=== PATIENT | female | born 1940 | race Caucasian/White ===

== ENCOUNTER → 2019-02-25 14:42 | Emergency (ER) | payer MEDICARE, MEDICAID ==
--- NOTE | 2019-02-25 15:26 | ED ---
Skin Complaint - HPI Summary HPI Summary: Pt. is a 78 y.o female who presents to the ER for questionable foreign body to nose. Pt. states last , 5 days ago, she felt either a wire or plastic band over the bridge of her nose. Pt. states she tried to remove it but is unable to get it off skin. Pt. states her nose then became red and scabbed. Past hx of DM, HTN, HDL. Sxs are mild in severity. No current modifying factors. - History of Current Complaint Chief Complaint: EDGeneral Time Seen by Provider: 02/25/19 15:12 Stated Complaint: INJURY TO MY NOSE PER PT Hx Obtained From: Patient Pain Intensity: 3 - Allergy/Home Medications Allergies/Adverse Reactions: Allergies Allergy/AdvReac Type Severity Reaction Status Date / Time Penicillins Allergy Hives Verified 02/25/19 14:58 Sulfa (Sulfonamide Allergy Hives Verified 02/25/19 14:58 Antibiotics) PMH/Surg Hx/FS Hx/Imm Hx Previously Healthy: Yes Infectious Disease History: No Infectious Disease History: Denies: Traveled Outside the [place] in Last 30 Days - Family History Known Family History: Positive: Non-Contributory - Social History Occupation: Retired Lives: Alone Review of Systems Constitutional: Negative Negative: Fever, Chills Positive: Other - redness to nose. ?FB. Neurological: Negative All Other Systems Reviewed And Are Negative: Yes Physical Exam Triage Information Reviewed: Yes Vital Signs On Initial Exam: Initial Vitals Temp Pulse Resp BP Pulse Ox 97.7 F 67 16 133/77 96 02/25/19 14:52 02/25/19 14:52 02/25/19 14:52 02/25/19 14:52 02/25/19 14:52 Vital Signs Reviewed: Yes Appearance: Positive: Well-Appearing - Pt. sitting up in bed in NAD. Talkative. Skin: Positive: Warm, Dry, Other - Scabbed areas with yellow crusting noted over tip of nose and nostrils. There is mild surrouding and extending erythmea to nasal bridge. I do not appreciate overlying FB. No induration or fluctuance. Head/Face: Positive: Normal Head/Face Inspection Eyes: Positive: Normal, EOMI Neck: Positive: Supple Neurological: Positive: Normal, CN Intact II-III Psychiatric: Positive: Affect/Mood Appropriate Diagnostics - Vital Signs Vital Signs Temp Pulse Resp BP Pulse Ox 02/25/19 14:52 97.7 F 67 16 133/77 96 - Laboratory Lab Statement: Any lab studies that have been ordered have been reviewed, and results considered in the medical decision making process. Course/Dx - Course Assessment/Plan: Pt. presenting stating she has a wire/plastic band stuck to the bridge of her nose. I do not appreciate FB on exam. Pt. rubbing skin stating she feels a band and is insistent there something on her skin. Pt. state there is also another area over her right nostril she feels there is somthing stuck to her skin. Again I do not see or feel anything. Pt. does appear to have impetigo to tip of nose with mild cellulitis of brige of nose. Pt. states if she lifts up scab then I will see the band. Pt. requesting xray to evaluate for FB. X-ray negative for acute findings, reading per radiology. We'll treat patient with Bactroban ointment and Keflex. Advised to avoid picking and scratching nose. To follow-up with PCP for wound check in 2-3 days. Return to the ER symptoms change or worsen. Patient understands and agrees with plan. - Differential Diagnoses - Skin Complaint Differential Diagnoses: Abscess, Cellulitis, Foreign Body - Diagnoses Provider Diagnoses: Cellulitis, Impetigo Discharge - Sign-Out/Discharge Documenting (check all that apply): Patient Departure Patient Received Moderate/Deep Sedation with Procedure: No - Discharge Plan Condition: Good Disposition: HOME Prescriptions: Cephalexin CAP* [Keflex CAP*] 500 mg PO QID #40 cap Mupirocin 2% OINT* [Bactroban 2 % Oint*] 1 applic TOPICAL BID #1 tube Patient Education Materials: Impetigo (ED), Cellulitis (ED) Referrals: [facility] [Outside] Additional Instructions: Call your PCP tomorrow to schedule a close follow up appointment for wound check Medication as directed Avoid touching and picking affected area Return to ER for increased redness, swelling, drainage, fever, or if concerned - Billing Disposition and Condition Condition: GOOD Disposition: Home
[2019-02-25 16:29] VITALS: BP 136/58
== END | disposition home or self-care (01) ==
LOC: ED 14:42
DX: L03.90 Cellulitis, unspecified (principal); L01.00 Impetigo, unspecified; I10 Essential (primary) hypertension; E11.9 Type 2 diabetes mellitus without complications; E78.5 Hyperlipidemia, unspecified; Z88.0 Allergy status to penicillin; Z88.2 Allergy status to sulfonamides
CPT/HCPCS: 70160; 99282